=== PATIENT | male | born 1945 | race Caucasian/White ===

== ENCOUNTER 2019-05-31 10:33 | Outpatient (CLI) | payer MEDICARE, MEDICAID, SELFPAY ==
--- NOTE | ~2019-05-31 | US_ITS ---
EXAMINATION: US abdomen limited DATE: 05/31/2019 11:20 INDICATION: Ascites TECHNIQUE: Multiple grayscale and Doppler ultrasound images of the abdomen were obtained. COMPARISON: Chest CT dated 06/05/2018. FINDINGS: There is increased echogenicity of the body of the pancreas which corresponds to mild diffuse fatty r eplacement on prior CT. The pancreatic head and tail are not clearly visualized. Liver has normal con tour, with a smooth surface. There is increased parenchymal echogenicity and coarsened echotexture co nsistent with diffuse hepatic steatosis. There is a small geographic region of focal hypoechoic fatty sparing along the gallbladder fossa. No liver lesion identified. No intrahepatic biliary duct dilat ion suspected. Portal venous flow was seen in the hepatopetal, normal direction and has normal Dopple r waveform. Mobile echogenic and shadowing gallstone in the gallbladder. There is suggestion of mild, tail artifact extending posteriorly from the wall of the gallbladder along the gallbladder fossa sug gesting mild adenomyomatosis. Sonographic Bassett sign was reported as negative by the content administrator.Com mon bile duct measures 5 mm diameter which is normal. Visualized portions of the kidneys demonstrates normal contour and cortical echogenicity with no hydronephrosis. The aorta and inferior vena cava ar e poorly visualized. IMPRESSION: 1. Diffuse hepatic steatosis and fatty infiltration of the pancreas. 2. Cholelithiasis without findings of acute cholecystitis. 3. Likely small region of adenomyomatosis along the wall the gallbladder abutting liver. Reviewed, dictated and finalized at location A. IMPRESSION: 1. Diffuse hepatic steatosis and fatty infiltration of the pancreas. 2. Cholelithiasis without findings of acute cholecystitis. 3. Likely small region of adenomyomatosis along the wall the gallbladder abutti ng liver.
[2019-05-31 10:49] LABS: Basophils Absolute Auto 0.06 K/mm3 (0.00-0.10); Basophils Percent Auto 0.3 % (0.0-1.0); Eosinophils Absolute Auto 0.01 K/mm3 (0.02-0.50); Eosinophils Percent Auto 0.1 % (1.0-6.0); Hematocrit 46.1 % (37.0-46.0); Hemoglobin 15.8 g/dL (12.4-15.3); Immature Granulocyte Absolute 0.53 K/mm3 (0.00-0.00); Immature Granulocyte Percent A 2.9 % (0.0-0.0); Lymphocytes Absolute Auto 1.88 K/mm3 (1.10-4.50); Lymphocytes Percent Auto 10.4 % (18.0-42.0); Mean Corpuscular HGB Conc 34.3 g/dL (32.0-36.0); Mean Corpuscular Hemoglobin 28.7 pg (27.0-31.0); Mean Corpuscular Volume 83.8 fL (78.0-102.0); Mean Platelet Volume 9.7 fl (8.7-11.0); Monocytes Percent Auto 6.1 % (2.0-11.0); Neutrophils Absolute Auto 14.5 K/mm3 (1.7-7.2); Neutrophils Percent Auto 80.2 % (50.0-70.0); Platelet Count Result 257 K/mm3 (150-420); Red Cell Distribution Width 14.6 % (11.6-14.4); White Blood Count 18.1 K/mm3 (4.8-10.8)
[2019-05-31 11:00] LABS: Prothrombin Time 10.2 Seconds (9.64-11.0)
[2019-05-31 11:16] LABS: Alanine Aminotransferase 19 U/L (16-63); Albumin Level 3.2 g/dL (3.4-5.0); Alkaline Phosphatase 66 U/L (46-116); Anion Gap 12.6 mmol/L (7-16); Aspartate Amino Transferase 12 U/L (15-37); Bilirubin Direct 0.1 mg/dL (0-0.2); Bilirubin,Total 0.4 mg/dL (0.00-1.00); Blood Urea Nitrogen 24 mg/dL (7-18); Calcium 8.2 mg/dL (8.5-10.1); Carbon Dioxide 26 mmol/L (21-32); Chloride 105 mmol/L (98-108); Estimated Glomerular Filt Rate 56; Ferritin 148 ng/mL (26-388); Glucose 142 mg/dL (70-99); Osmolality Calculated 294 mOsm/kg (285-295); Potassium 4.6 mmol/L (3.5-5.1); Sodium 139 mmol/L (136-145); Total Protein 6.6 g/dL (6.4-8.2)
[2019-05-31 11:31] LABS: Ammonia 13 umol/L (11-32)
[2019-05-31 11:38] LABS: Iron 122 ug/dL (65-175); Percent Iron Saturation 39 % (12-57)
[2019-06-02 02:07] LABS: Hepatitis A Antibody IgM Nonreactive; Hepatitis B Core Antibody Nonreactive (Nonreactive); Hepatitis B Surface Antigen Nonreactive (Nonreactive); Hepatitis C Signal to Cutoff 0.01 ratio (<1.00); Hepatitis C Virus Antibody Nonreactive (Nonreactive)
== END 2019-05-31 10:34 | disposition home or self-care (01) ==
LOC: CHSLAB 10:38
PROVIDERS: PCP Family Medicine; Visit Provider Family Medicine
DX: R18.8 Other ascites (principal); I48.91 Unspecified atrial fibrillation; F10.20 Alcohol dependence, uncomplicated; R63.2 Polyphagia
CPT/HCPCS: 36415; 76705; 80048; 80074; 80076; 82140; 82728; 83540; 83550; 85025; 85610

== ENCOUNTER 2019-07-27 12:03 | Outpatient (CLI) | payer MEDICARE, SELFPAY ==
[2019-07-27 13:41] LABS: Alanine Aminotransferase 16 U/L (16-63); Albumin Level 3.4 g/dL (3.4-5.0); Alkaline Phosphatase 105 U/L (46-116); Anion Gap 13.5 mmol/L (7-16); Aspartate Amino Transferase 13 U/L (15-37); Bilirubin,Total 0.4 mg/dL (0.00-1.00); Blood Urea Nitrogen 15 mg/dL (7-18); Carbon Dioxide 28 mmol/L (21-32); Chloride 104 mmol/L (98-108); Estimated Glomerular Filt Rate 54; Glucose 116 mg/dL (70-99); Osmolality Calculated 293 mOsm/kg (285-295); Potassium 4.5 mmol/L (3.5-5.1); Sodium 141 mmol/L (136-145); Total Protein 6.7 g/dL (6.4-8.2)
== END 2019-07-27 12:04 | disposition home or self-care (01) ==
PROVIDERS: PCP Family Medicine; Visit Provider Internal Medicine Pulmonary Disease
DX: K74.60 Unspecified cirrhosis of liver (principal)
CPT/HCPCS: 36415; 80053

== ENCOUNTER 2019-09-07 10:27 | Outpatient (CLI) | payer MEDICARE, MEDICAID, SELFPAY ==
--- NOTE | ~2019-09-07 | XR_ITS ---
EXAMINATION: XR knee RT 2V DATE: 09/07/2019 10:49 INDICATION: Right knee primary osteoarthritis. Right knee pain. TECHNIQUE: 2 views of right knee were obtained. COMPARISON: Right knee radiographs 05/08/2017 FINDINGS: Bone alignment is normal. No fracture. There is mild tricompartmental osteoarthritis. No kn ee joint effusion. IMPRESSION: 1. Mild right knee osteoarthritis. Reviewed, dictated and finalized at location A.
--- NOTE | ~2019-09-07 | XR_ITS ---
EXAMINATION: XR knee LT 2V DATE: 09/07/2019 10:49 INDICATION: Primary left knee osteoarthritis. TECHNIQUE: 2 views of left knee were obtained. COMPARISON: Left knee radiographs 05/08/2017 FINDINGS: Bone alignment is normal. No fracture. There is mild osteoarthritis of patellofemoral cary rtment. No knee joint effusion. IMPRESSION: 1. Mild left knee osteoarthritis. Reviewed, dictated and finalized at location A.
== END 2019-09-07 10:28 | disposition home or self-care (01) ==
LOC: CHSIMG 10:29
PROVIDERS: PCP Nurse Practitioner Family; Visit Provider Nurse Practitioner Family
DX: M15.0 Primary generalized (osteo)arthritis (principal)
CPT/HCPCS: 73560

== ENCOUNTER 2019-09-23 11:34 | Outpatient (CLI) | payer MEDICARE, MEDICAID, SELFPAY ==
--- NOTE | ~2019-09-23 | XR_ITS ---
XR chest 2V DATE: 09/23/2019 11:59 INDICATION: Chronic obstructive pulmonary disease TECHNIQUE: PA and lateral views COMPARISON: 06/23/2018 2 view chest FINDINGS: There is middle lobe atelectasis and/or consolidation. Obstructing endobronchial lesion of the middle lobe is not excluded. Moderate hyperinflation of the lungs. The remaining lung farmer are clear. Mild bilateral apical cap ping. Heart size is within normal range. There is aortic calcification. No pleural effusion or pne umothorax. Diffuse osteopenia. Old healed bilateral rib fractures. Old left humeral neck fracture. Probable o ld right scapular fracture deformity. Old thoracic spine compression fracture deformities. Old ster nal fracture deformity. IMPRESSION: Middle lobe infiltrate and/or atelectasis; obstructing endobronchial malignancy cannot be excluded. Reviewed, dictated and finalized at location B. IMPRESSION: Middle lobe infiltrate and/or atelectasis; obstructing endobronchia l malignancy cannot be excluded.
[2019-09-23 13:10] LABS: Alanine Aminotransferase 31 U/L (16-63); Albumin Level 3.2 g/dL (3.4-5.0); Alkaline Phosphatase 79 U/L (46-116); Anion Gap 16.7 mmol/L (7-16); Aspartate Amino Transferase 17 U/L (15-37); Bilirubin,Total 0.6 mg/dL (0.00-1.00); Blood Urea Nitrogen 22 mg/dL (7-18); Calcium 8.7 mg/dL (8.5-10.1); Carbon Dioxide 24 mmol/L (21-32); Chloride 103 mmol/L (98-108); Estimated Glomerular Filt Rate 40; Glucose 190 mg/dL (70-99); Osmolality Calculated 298 mOsm/kg (285-295); Potassium 3.7 mmol/L (3.5-5.1); Sodium 140 mmol/L (136-145); Total Protein 6.2 g/dL (6.4-8.2)
== END 2019-09-23 11:35 | disposition home or self-care (01) ==
LOC: CHSLAB 11:37
PROVIDERS: PCP Nurse Practitioner Family; Visit Provider Nurse Practitioner Family
DX: J44.9 Chronic obstructive pulmonary disease, unspecified (principal); E87.1 Hypo-osmolality and hyponatremia
CPT/HCPCS: 36415; 71046; 80053

== ENCOUNTER 2019-09-28 11:22 | Outpatient (CLI) | payer MEDICARE, MEDICAID, SELFPAY ==
--- NOTE | ~2019-09-28 | CT_ITS ---
EXAMINATION: CT chest w con DATE: 09/28/2019 12:01 INDICATION: Shortness of breath. COPD. TECHNIQUE: Computed tomography (CT) of the chest was performed with 75 cc Omnipaque 350 intravenous c ontrast. The dose-length product was 411.67 mGy-cm. Automated exposure control and iterative reconstr uction technique were employed. COMPARISON: CT dated 08/23/2013 FINDINGS: There is mediastinal lipomatosis. Heart size is normal. No significant pleural or pericardi al effusion. No thoracic lymphadenopathy. There is atherosclerosis of the aorta without evidence for aneurysm or dissection. There is fatty infiltration of the liver. There is a 3 mm right upper lobe no dule, image 63. Calcified granuloma right lower lobe. There is lingular atelectasis/scarring. There i s apical pleural thickening/scarring. There is right middle lobe atelectasis. There are multiple heal ed right rib fractures. There is a chronic fracture deformity of the sternum. There are multiple thor acic compression fractures, age indeterminate. IMPRESSION: 1. Right upper lobe nodule measuring 3 mm, likely benign. Follow-up low dose CT chest in 12 months re commended. 2: Multiple thoracic compression fractures, age indeterminate. Multiple chronic right rib fractures. Chronic sternal fracture. Reviewed, dictated and finalized at location A. IMPRESSION: 1. Right upper lobe nodule measuring 3 mm, likely benign. Follow-up low dose CT chest in 12 months recommended. 2: Multiple thoracic compression fractures, age indeterminate. Multiple chronic right rib fractures. Chronic sternal fracture.
== END 2019-09-28 11:23 | disposition home or self-care (01) ==
LOC: CHSIMG 11:24
PROVIDERS: PCP Family Medicine; Visit Provider Internal Medicine Pulmonary Disease
DX: R91.8 Other nonspecific abnormal finding of lung field (principal); J44.9 Chronic obstructive pulmonary disease, unspecified
CPT/HCPCS: 71260; Q9965

== ENCOUNTER 2019-09-29 11:03 | Inpatient (IN) | payer MEDICARE, MEDICAID, SELFPAY ==
[2019-09-29] VITALS (16 sets, daily range): BP systolic 92–128; BP diastolic 30–79; PULSE 89–139; RESP 20–26; TEMP 36.5–37.2; O2SAT 95–99; BMI 27.6
--- NOTE | ~2019-09-29 | CT_ITS ---
EXAMINATION: CT abdomen pelvis wo con DATE: 09/29/2019 17:55 INDICATION: Elevated lactic acid levels. Acute renal failure. Ascites. TECHNIQUE: Computed tomography (CT) of the abdomen and pelvis was performed without intravenous contr ast. The dose-length product was 1125.94 mGy-cm. Automated exposure control and iterative reconstruct ion technique were employed. COMPARISON: None. FINDINGS: Bibasilar dependent atelectasis. Heart size normal. There are prominent cardiophrenic angle fat pads. No significant pleural or pericardial effusion. Cholelithiasis. The liver, spleen, pancreas, adrenal glands and kidneys are unremarkable. There is co ntrast in the bladder, likely from recent CT chest dated 09/28/2019. Nonobstructive bowel gas pattern. No free air or free fluid. Colonic diverticulosis without evidence for diverticulitis. No abnormal p elvic masses or fluid collections. There is atherosclerosis without evidence for aneurysm.There are s urgical changes in the lower abdomen abdominal wall, consistent with previous hernia repair. Wedge co mpression deformity of T10, likely chronic. IMPRESSION: 1. No acute abdominal abnormality. 2: Cholelithiasis. Reviewed, dictated and finalized at location A.
--- NOTE | ~2019-09-29 | CT_ITS ---
EXAMINATION: CTA chest PE protocol DATE: 10/01/2019 17:21 CDT INDICATION: Shortness of breath. Elevated d-dimer. TECHNIQUE: Computed tomographic angiography (CTA) of the chest was performed with 100 mL Omnipaque-35 0 intravenous contrast. The dose-length product was 618.25 mGy-cm. Maximum intensity projection 3D-re constructions of the aorta and other arteries were constructed by the technologist on a separate work station. Automated exposure control and iterative reconstruction technique were employed. COMPARISON: CT dated 09/28/2019 FINDINGS: New trace pleural effusions with underlying compressive atelectasis. Right middle lobe atel ectasis. Study is technically adequate without evidence for pulmonary embolism. No thoracic lymphaden opathy. Mediastinal lipomatosis. There is atherosclerosis of the aorta without evidence for aneurysm or dissection. 3 mm right upper lobe unchanged. No focal airspace consolidation. There is evidence fo r chronic granulomatous disease. Multiple thoracic compression fractures unchanged. There is a chroni c fracture of the sternum with callus formation. T4 compression fracture appears sclerotic. Cannot ex clude pathologic fracture. IMPRESSION: 1. No evidence for pulmonary embolism. 2: Interval development of some trace pleural effusions with compressive atelectasis. 3: Multiple thoracic compression fractures, unchanged. T4 fracture may be pathologic given the sclero tic appearance. Chronic fracture deformity of the sternum. 4: Stable 3 mm right upper lobe nodule, likely benign. Twelve-month follow-up CT recommended. Reviewed, dictated and finalized at location A. IMPRESSION: 1. No evidence for pulmonary embolism. 2: Interval development of some trace pleural effusions with compressive atelec tasis. 3: Multiple thoracic compression fractures, unchanged. T4 fracture may be patho logic given the sclerotic appearance. Chronic fracture deformity of the sternum . 4: Stable 3 mm right upper lobe nodule, likely benign. Twelve-month follow-up C T recommended.
--- NOTE | ~2019-09-29 | XR_ITS ---
EXAMINATION: XR chest 2V DATE: 09/30/2019 11:30 INDICATION: Worsening atrial fibrillation TECHNIQUE: Frontal and lateral views of the chest are obtained COMPARISON: 09/29/2019 FINDINGS: The lungs are free of acute opacities. A prominent epicardial fat pad is again noted as see n on recent CT. There are trace pleural effusions. No pneumothorax is identified. The cardiomediastin al silhouette is normal. Multiple healed bilateral rib fractures are noted. IMPRESSION: 1. Trace pleural effusions. Reviewed, dictated and finalized at location B. IMPRESSION: 1. Trace pleural effusions.
--- NOTE | ~2019-09-29 | XR_ITS ---
EXAMINATION: XR chest 2V EXAM DATE: 09/29/2019 13:04 INDICATION: Shortness of breath. TECHNIQUE: Frontal and lateral projections of the chest obtained and reviewed. Comparison is made to prior examination from 09/23/2019, 06/17/2018. Correlation was made with chest CT 09/28/2019. FINDINGS: Chronically increased density over right epicardial region. Correlating with yesterday's ch est CT, patient has large amount of epicardial fat which likely accounts for this increased density. No confluent consolidation, pneumothorax or pleural effusion suspected. Old bilateral rib fractures. There are mild bony degenerative changes. IMPRESSION: 1. No acute cardiopulmonary findings. 2. Chronic right pericardiac density, large amount of epicardial fat. Reviewed, dictated and finalized at location A.
--- NOTE | 2019-09-29 11:29 | ECG_ITS ---
Measurements Intervals [place] Rate: 126 P: ND: 0 QRS: 24 QRSD: 97 T: 35 QT: 313 QTc: 454 Interpretive Statements ATRIAL FIBRILLATION WITH RAPID VENTRICULAR RESPONSE VENTRICULAR PREMATURE COMPLEXES EARLY PRECORDIAL R/S TRANSITION NONSPECIFIC ST & T-WAVE ABNORMALITY- INF/HIGH LAT LEADS BASELINE WANDER- V4-V6 ABNORMAL ECG Electronically Signed On 09-29-2019 12:24:46 CDT by Adam Sims D.O.
--- NOTE | 2019-09-29 11:31 | ED.GENADULT ---
HPI - General Adult General Chief complaint: Arrhythmia/Palpitations Stated complaint: shortness of breath Time Seen by Provider: 09/29/19 11:31 History of Present Illness HPI narrative: 74-year-old male patient was sent to us from the Clinic by the nurse practitioner for evaluation of a rapid heart rate of 150. The patient apparently was at her office this morning to get a short of Trulicity and during his routine vital Signs they found that he had low blood pressure as well as atrial fibrillation. The patient denies any palpitations or chest pain. Patient does complain of shortness of breath which has been going on for a long time. He does have an underlying history of COPD and is still a smoker of approximately 7 cigarettes a day. He uses home oxygen at 3 liters/minute. He is also using neb treatments at home. The patient did have pneumonia in the past and had a CT of the chest done yesterday with diet which reports right upper lobe nodule that measures about 3 mm probably benign. He also has some thoracic compression fractures of indeterminate age and chronic right rib fractures. The patient has not experienced any dizziness lightheadedness or passing out spells. Patient was recently started on Levaquin for possible pneumonia. He has also been given Lasix that has been in addition to his medication recently for his shortness of breath. Although I do not see any history of congestive heart failure documented in his past medical complaints. Related Data Home Medications Medication Instructions Recorded Confirmed albuterol sulfate 90 mcg/actuation 1 puff INHALATION Q4H PRN 02/09/19 09/29/19 aerosol inhaler aspirin 81 mg tablet,delayed 81 mg PO DAILY 02/09/19 09/29/19 release fluticasone fur. 100 mcg-umeclid 1 inhalation INHALATION DAILY 02/09/19 09/29/19 62.5 mcg-vilant 25 mcg inhalat.powder theophylline 400 mg 400 mg PO DAILY 02/09/19 09/29/19 tablet,extended release 24 hr levofloxacin 750 mg tablet 750 mg PO DAILY tablet 09/29/19 09/29/19 prednisone 10 mg tablet 10 mg PO DAILY 09/29/19 09/29/19 Allergies Allergy/AdvReac Type Severity Reaction Status Date / Time Penicillins Allergy Intermediate Unknown Verified 09/29/19 10:32 propoxyphene [Darvocet-N 100] Allergy Intermediate Unknown Verified 09/29/19 10:32 Review of Systems Eyes: Eyes: Reports no additional eye complaints ENT: Denies dysphagia, Denies vertigo, Denies dizziness and Denies nasal congestion Cardiovascular: Cardiovascular: Reports no additional cardiovascular complaints Respiratory: Respiratory: Reports as per HPI, Reports cough and Reports dyspnea Comments: Productive cough PMFSH Social History Social History Smoking packs per day: 1 Smoking cigarettes per day: 20.0 Years smoked: 50 Smoking pack-years: 50.00 Smoking status: Current every day smoker Tobacco type: cigarettes Alcohol intake: current Additional living arrangements comments: x2. Lives with girlfriend. 3 Children. 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 Gender identity (if verbalized by the patient): Male Exam Extrem: General: no edema Course Course Emergency Course: Patient has an EKG that confirms atrial fibrillation with rapid ventricular rate. His vital signs remained stable although his blood pressure is on the lower side. He does not appear in any acute distress. His labs have been reviewed and he does have a mild elevation of white cell count with an early shift. Troponin is normal. A repeat chest x-ray has been done here which does not show any obvious pneumonia but is consistent with the COPD. The CT chest done yesterday has been reviewed and mentioned in the history of present illness at this time. Patient has been given 10 mg of diltiazem and his heart rate did slow down to 134 from 150 however he is still in AFib. The patient's
[2019-09-29 11:50] LABS: Hematocrit 35.6 % (37.0-46.0); Hemoglobin 12.7 g/dL (12.4-15.3); Mean Corpuscular HGB Conc 35.7 g/dL (32.0-36.0); Mean Corpuscular Hemoglobin 30.2 pg (27.0-31.0); Mean Corpuscular Volume 84.6 fL (78.0-102.0); Mean Platelet Volume 10.4 fl (8.7-11.0); Platelet Count Result 165 K/mm3 (150-420); Red Blood Count 4.21 M/mm3 (4.70-6.10); Red Cell Distribution Width 14.6 % (11.6-14.4); White Blood Count 15.6 K/mm3 (4.8-10.8)
[2019-09-29] MEDS: dilTIAZem HCl INJ 25 MG/5 ML VIAL 10 MG IV PUSH (11:58)
[2019-09-29] MEDS: SODIUM CHLORIDE 0.9% IV 1,000 ML 150 ML IV CONT ×2 (11:59→17:20)
[2019-09-29 12:08] LABS: Alanine Aminotransferase 27 U/L (16-63); Albumin Level 2.9 g/dL (3.4-5.0); Alkaline Phosphatase 70 U/L (46-116); Anion Gap 15.8 mmol/L (7-16); Aspartate Amino Transferase 17 U/L (15-37); Bilirubin,Total 0.3 mg/dL (0.00-1.00); Blood Urea Nitrogen 38 mg/dL (7-18); Calcium 7.9 mg/dL (8.5-10.1); Carbon Dioxide 22 mmol/L (21-32); Chloride 104 mmol/L (98-108); Estimated Glomerular Filt Rate 30; Glucose 399 mg/dL (70-99); Osmolality Calculated 312 mOsm/kg (285-295); Potassium 3.8 mmol/L (3.5-5.1); Sodium 138 mmol/L (136-145); Total Protein 6.3 g/dL (6.4-8.2)
[2019-09-29 12:13] LABS: BNP 34.8 pg/mL (0-100)
[2019-09-29 12:14] LABS: Band Neutrophils Percent 4 % (0-6); Basophils Percent Manual 0 % (0-1); Eosinophils Percent Manual 0 % (1-6); Lymphocytes Absolute Manual 1.09 K/mm3 (1.1-4.5); Lymphocytes Percent Manual 7 % (18-44); Metamyelocytes Percent 1 %; Monocytes Absolute Manual 0.31 K/mm3 (0.1-0.90); Monocytes Percent Manual 2 % (3-9); Neutrophils Absolute Manual 14.04 K/mm3 (1.3-6.7); Neutrophils Percent Manual 86 % (46-73); Total Cells Counted 100
[2019-09-29 12:15] LABS: Troponin I < 0.02 ng/mL (0.00-0.056)
[2019-09-29 12:27] LABS: Platelet Estimate Adequate (Adequate)
--- NOTE | 2019-09-29 14:22 | PM.IMHP ---
H&P: HPI History of Present Illness Chief complaint: shortness of breath Narrative: Kip Montero is a 74 year old male admitted with Arrhythmia, Palpitations, productive cough, dyspnea, and shortness of breath. He was sent to us from the Clinic by the nurse practitioner for evaluation of a rapid heart rate of 150. The patient apparently was at her office this morning to get a shot of Trulicity and during his routine vital Signs they found that he had low blood pressure as well as atrial fibrillation. The patient denies any palpitations or chest pain. Patient does complain of shortness of breath which has been going on for a long time. He does have an underlying history of COPD and is still a smoker of approximately 7 cigarettes a day. He uses home oxygen at 3 liters/minute. He is also using neb treatments at home. The patient did have pneumonia in the past and had a CT of the chest done yesterday with diet which reports right upper lobe nodule that measures about 3 mm probably benign. He also has some thoracic compression fractures of indeterminate age and chronic right rib fractures. The patient has not experienced any dizziness lightheadedness or passing out spells. Patient was recently started on Levaquin for possible pneumonia. He completed a 5 day course, but was written to start another 5 day course. He has also been given Lasix that has been in addition to his medication recently for his shortness of breath. The ED physician did not see any history of congestive heart failure documented in his past medical complaints. His ED admission HR was 112-139 with stable BPs of 128/59 and 110/79. Patient has an EKG that confirms atrial fibrillation with rapid ventricular rate. Troponin x 1 WNL. LFTs are wnl. BNP low at 34.8. Due to the patient's current soft blood pressures and near hypotension, we are holding his home dose of losartan. We will also his home dose of Pletal as it interacts with Cardizem. Pletal should be restarted as soon as the patient is off the Cardizem drip or at the least at discharge if his BPs are sufficient. In the ED, His vital signs remained stable although his blood pressure is on the lower side. He does not appear in any acute distress. His labs have been reviewed and he does have a mild elevation of white cell count with an early shift. Troponin is normal. A repeat chest x-ray has been done here which does not show any obvious pneumonia but is consistent with the COPD. The CT chest done yesterday has been reviewed and mentioned in the history of present illness at this time. Patient has been given 10 mg of diltiazem and his heart rate did slow down to 134 from 150 however he is still in AFib. The patient's blood pressure went down to 99/61. He has been started on a Cardizem drip. He is aware of admission for overnight observation today. The nurse practitioner and has already been notified. We will go ahead and admit the patient from the ER. His creatinine is 2.17 today with a BUN 38 and GFR of 30. His baseline creatinine appears to be 1.25-1.30. His creatinine on 05/31/19 was 1.25 and on 07/27/2019 creatinine was 1.30. The non-renal doses of Levaquin he was taking, likely did not help his renal function at this time. And his dehydration only compounded that. Plus his diabetic non-compliance with A1C over 9, compounded his renal dysfunction. This patient has been seen both his structural ironworker Dr. Grijalva as well as his primary care provider, multiple times over the last 2 weeks. He was placed on 5 days of Levaquin around September 23 by Primary Care provider. He was then instructed to start another 5 days of oral Levaquin by [facility] Department Supervisor Dr. Grijalva. He reports that he took a total of 6 days of Levaquin prior to this admission. We will not continue any antibiotics at this time for pneumonia as his CT yesterday of the chest and his chest x-ray today sign of pneumonia or acute infection. His white count though is elevated. His
[2019-09-29 14:23] LABS: Glucose Point of Care 393 (65-105)
--- NOTE | 2019-09-29 14:37 | PC.NURSE ---
Admitted for elevated heart rate, from home, hx of back pain and afib, states also sugar diabetes, here for cardizem drip, placed on telemetry and noted to have afib 110's heart rate, oxygen at home 2 L NC at night, recent dx of pneumonia as well,oriented to room and place don oxygen as per home dose, recent increase in sob lately
--- NOTE | 2019-09-29 14:47 | PHAR ---
09/29/19 - PT. TAKES METOPROLOL TARTRATE 100MG BID PER JUSTINO, LAST FILLED 45D SUPPLY 08/16/19. HE GOT 5 DAY SUPPLY OF LEVAQUIN 09/24/19, THEN GOT ANOTHER SUPPLY 09/28/19 PER JUSTINO. INITIALLY ORDERED TO CONTINUE THE 750MG DAILY; DISCUSSED AND WAS GOING TO CHANGE DOSE TO Q48H DUE TO CRCL ~30ML/MIN. BUT ELLIS CUMMINS DECIDED TO DC THERAPY ALL TOGETHER SINCE PT HAS ALREADY HAD 5 DAY COURSE OF HIGH DOSE LEVQUIN THERAPY OUTPATIENT. ELLIS Elder IS D/C'ING PLETAL DUE TO CONTRAINDICATION FLAG WITH DILITAZEM DRIP AT THIS TIME. TLS
[2019-09-29 15:14] LABS: Acetone SMALL (Negative)
[2019-09-29 15:29] LABS: Lactic Acid Reflex 2.9 mmol/L (0.4-2.0)
[2019-09-29 15:55] LABS: Phosphorus 2.7 mg/dL (2.6-4.7)
[2019-09-29 15:57] LABS: Magnesium 0.9 mg/dL (1.8-2.4)
--- NOTE | 2019-09-29 16:00 | PC.NURSE ---
Afib 110 no change in cardizem drip at this time
[2019-09-29] MEDS: MAGNESIUM SULF 4 GM/WATER100ML 4 GM/100 ML BAG IVPB (17:27)
--- NOTE | 2019-09-29 17:30 | PC.NURSE ---
To CT for ab dominal series
[2019-09-29 17:35] LABS: Reflex Lactic Acid Yes or No Add Lactic
[2019-09-29] MEDS: IPRATROPIUM 0.5 MG/ALBUTEROL SULFATE 2.5 MG AMPUL.NEB 3 ML INHALATION ×2 (17:57→22:58)
[2019-09-29] MEDS: BUDESONIDE RESPULE NEB 0.25 MG/2 ML AMP INHALATION (17:59)
[2019-09-29] MEDS: ENOXAPARIN 30 MG/0.3 ML SYRINGE SUB-Q (17:59)
--- NOTE | 2019-09-29 18:41 | PC.NURSE ---
telemetry afib 120
[2019-09-29 19:52] LABS: Creatine Kinase 84 U/L (39-308)
--- NOTE | 2019-09-29 19:55 | PC.NURSE ---
Telemetry showing A-fib. Patient resting. No distress noted. Call light in reach.
[2019-09-29 19:57] LABS: Glucose Point of Care 343 (65-105)
[2019-09-29 19:59] LABS: Lactic Acid 2.1 mmol/L (0.4-2.0)
--- NOTE | 2019-09-29 20:00 | PC.NURSE ---
VS called to Dr Haney. Order received to ROSEMARIE Calderon and Dr sutton put in order for nery Calderon.
[2019-09-29 20:08] LABS: Magnesium 2.5 mg/dL (1.8-2.4); Troponin I < 0.02 ng/mL (0.00-0.056)
--- NOTE | 2019-09-29 21:10 | PC.NURSE ---
Telemetry showing A-fib. Patient resting. No distress noted. Call light in reach.
--- NOTE | 2019-09-29 22:05 | PC.NURSE ---
Telemetry showing A-fib. Patient resting. No distress noted. Blood sugar= 241. Call light in reach.
[2019-09-29 22:25] LABS: Glucose Point of Care 246 (65-105)
[2019-09-29] MEDS: CYCLOBENZAPRINE HCL 10 MG TABLET PO (22:43)
--- NOTE | 2019-09-29 23:05 | PC.NURSE ---
Telemetry showing A-fib. Patient resting. No distress noted. Call light in reach.
[2019-09-30] VITALS (23 sets, daily range): BP systolic 97–123; BP diastolic 38–67; PULSE 84–156; RESP 18–28; TEMP 36.4–37.2; O2SAT 96–98
[2019-09-30 00:08] LABS: Glucose Point of Care 218 (65-105)
--- NOTE | 2019-09-30 00:15 | PC.NURSE ---
Telemetry showing A-fib. VS called to Dr Haney with order received to hold nery Calderon. Blood wylfn=[id number]. No distress noted. Call light in reach.
--- NOTE | 2019-09-30 01:05 | PC.NURSE ---
Patient appears to be sleeping by the rise and fall of his chest. Telemetry showing A-fib. No distress noted. Call light in reach.
--- NOTE | 2019-09-30 02:10 | PC.NURSE ---
Patient appears to be sleeping by the rise and fall of his chest. Telemetry showing A-fib. No distress noted. Call light in reach.
[2019-09-30] MEDS: SODIUM CHLORIDE 0.9% IV 1,000 ML 150 ML IV CONT (02:20)
[2019-09-30 03:12] LABS: Glucose Point of Care 215 (65-105)
--- NOTE | 2019-09-30 03:15 | PC.NURSE ---
Labs drawn per tech. Patient tolerated well. Urinalysis also sent with tech to be processed. IVF infusing without difficulty. Telemetry continues to show A-fib. Patient denies pain/complaints/needs @ this time. No distress noted. Call light in reach.
[2019-09-30 03:49] LABS: Alanine Aminotransferase 25 U/L (16-63); Albumin Level 2.4 g/dL (3.4-5.0); Alkaline Phosphatase 56 U/L (46-116); Anion Gap 10.5 mmol/L (7-16); Aspartate Amino Transferase 17 U/L (15-37); Bilirubin,Total 0.4 mg/dL (0.00-1.00); Blood Urea Nitrogen 30 mg/dL (7-18); Calcium 7.3 mg/dL (8.5-10.1); Carbon Dioxide 24 mmol/L (21-32); Chloride 109 mmol/L (98-108); Estimated CRCL calculation 41 ml/min; Estimated Glomerular Filt Rate 42; Glucose 219 mg/dL (70-99); Magnesium 2.1 mg/dL (1.8-2.4); Osmolality Calculated 303 mOsm/kg (285-295); Potassium 3.5 mmol/L (3.5-5.1); Sodium 140 mmol/L (136-145); Total Protein 5.3 g/dL (6.4-8.2)
[2019-09-30 03:55] LABS: Creatine Kinase 90 U/L (39-308)
[2019-09-30 03:56] LABS: Troponin I < 0.02 ng/mL (0.00-0.056)
[2019-09-30 03:56] LABS: Lactic Acid 1.1 mmol/L (0.4-2.0)
[2019-09-30 03:58] LABS: Hemoglobin 11.1 g/dL (12.4-15.3); Mean Corpuscular HGB Conc 34.7 g/dL (32.0-36.0); Mean Corpuscular Hemoglobin 29.6 pg (27.0-31.0); Mean Corpuscular Volume 85.3 fL (78.0-102.0); Mean Platelet Volume 10.5 fl (8.7-11.0); Platelet Count Result 145 K/mm3 (150-420); Red Blood Count 3.75 M/mm3 (4.70-6.10); Red Cell Distribution Width 14.8 % (11.6-14.4); White Blood Count 10.6 K/mm3 (4.8-10.8)
[2019-09-30 04:12] LABS: Add Urine Microscopic? YES; Appearance Urine Clear (Clear); Bilirubin Urine Negative (Negative); Blood Urine Negative (Negative); Color Urine Yellow (Yellow); Glucose Urine UA 2+ (Negative); Ketones Urine Negative (Negative); Leukocyte Esterase Ur Negative (Negative); Nitrate Urine Negative (Negative); Protein Urine Negative (Negative); Specific Grav Ur >= 1.030 (1.010-1.020)
[2019-09-30 04:12] LABS: Glucose Point of Care 232 (65-105)
[2019-09-30 04:21] LABS: Bacteria Urine Trace /hpf; RBC Urine 0-2 /hpf (0-2); Squamous Epithelial Cell Urine None seen /hpf (Few); WBC Urine 0-3 /hpf (0-3)
[2019-09-30 04:22] LABS: Band Neutrophils Percent 0 % (0-6); Basophils Percent Manual 0 % (0-1); Eosinophils Percent Manual 0 % (1-6); Lymphocytes Absolute Manual 1.16 K/mm3 (1.1-4.5); Lymphocytes Percent Manual 11 % (18-44); Metamyelocytes Percent 3 %; Monocytes Absolute Manual 0.53 K/mm3 (0.1-0.90); Monocytes Percent Manual 5 % (3-9); Neutrophils Absolute Manual 8.58 K/mm3 (1.3-6.7); Neutrophils Percent Manual 81 % (46-73); Platelet Estimate Adequate (Adequate)
[2019-09-30] MEDS: IPRATROPIUM 0.5 MG/ALBUTEROL SULFATE 2.5 MG AMPUL.NEB 3 ML INHALATION ×4 (05:28→22:58)
[2019-09-30] MEDS: BUDESONIDE RESPULE NEB 0.25 MG/2 ML AMP INHALATION ×2 (05:30→18:03)
--- NOTE | 2019-09-30 06:08 | PC.NURSE ---
Spoke with [facility] to clarify cardizem PO orders.
[2019-09-30 06:18] LABS: Glucose Point of Care 219 (65-105)
[2019-09-30] MEDS: CYCLOBENZAPRINE HCL 10 MG TABLET PO ×3 (06:18→21:19)
[2019-09-30] MEDS: dilTIAZem HCL 30 MG TABLET 60 MG PO ×4 (06:18→23:31)
[2019-09-30 07:56] LABS: Glucose Point of Care 216 (65-105)
[2019-09-30] MEDS: dilTIAZem HCl INJ 25 MG/5 ML VIAL 10 MG IV PUSH (08:33)
[2019-09-30 09:04] LABS: BNP 53 pg/mL (0-100)
[2019-09-30] MEDS: FLUTICASONE/UMECLIDIN/VILANTER 100-62.5-25 MCG ELLIPTA 1 PUFF INHALATION (09:48)
[2019-09-30] MEDS: THEOPHYLLINE ANHYDROUS 100 MG CAP.ER.24H 400 MG PO (09:49)
[2019-09-30] MEDS: ASPIRIN 81 MG ENTERIC TABLET PO (09:49)
[2019-09-30] MEDS: predniSONE 10 MG TABLET PO (09:49)
[2019-09-30] MEDS: PANTOPRAZOLE 40 MG TABLET PO (09:49)
[2019-09-30] MEDS: CYCLOBENZAPRINE HCL 10 MG TABLET 5 MG PO (09:53)
[2019-09-30 10:30] LABS: Glucose Point of Care 269 (65-105)
[2019-09-30 11:52] LABS: Glucose Point of Care 259 (65-105)
--- NOTE | 2019-09-30 12:10 | PHAR ---
09/30/19 - spoke w/pt. He last got his weekly Trulicity injection 09/29/19 (got it adminsitered across the street at clinic before getting admitted). tls
--- NOTE | 2019-09-30 12:30 | P.PN_ITS ---
Progress Note: A&P Assessment and Plan (1) Atrial fibrillation with rapid ventricular response: Code(s): I48.91 - Unspecified atrial fibrillation Status: Acute Assessment and Plan: * admitted with Arrhythmia, Palpitations, productive cough, dyspnea, and shortness of breath. rapid heart rate of 150. * EKG on admission indicates atrial fibrillation with rapid ventricular rate. * continue telemetry * troponin negative x3 * BMP within normal limits * echo pending * discontinue Cardizem drip started Cardizem 120 mg daily for tomorrow, will continue Cardizem 60 mg p.o. q.6 hours for now * decrease metoprolol to 50 mg b.i.d. instead of 100 mg b.i.d. and started losartan at 12.5 daily * Lovenox ordered * follow-up with supervisor pig machine after discharge (2) COPD (chronic obstructive pulmonary disease): Code(s): J44.9 - Chronic obstructive pulmonary disease, unspecified Status: Acute Assessment and Plan: * stable * continue budesinide and DuoNeb nebulizers * patient use home O2 * the theophylline level pending * SpO2 is currently 95% on 2 L of oxygen nasal cannula * cxr indicate a trace of pleural effusion (3) Type 2 diabetes mellitus: Code(s): E11.9 - Type 2 diabetes mellitus without complications Status: Acute Assessment and Plan: * remains elevated but less than 300 * beta hydroxybutyrate level pending * patient passed A1c 9.4, patient goes to PCP office for Trulicity injections. * change patient's insulin from lower to moderate sliding scale * patient states that he has never checked his glucose levels at home, stated that he doesn't even have the equipment to do so * will need extensive education regarding: diabetes, appropriate glucose levels, risks and effects of uncontrolled DM, using insulin at home, glucose monitoring needs to be able to return demonstrate ability to dose and administer his insulin prior to discharge * have an Practice Assistant appointment in place at discharge (4) Ascites: Code(s): R18.8 - Other ascites Status: Acute Assessment and Plan: * LFTs are wnl. * palpable enlarged and tender abdomen * ordered CT scan abdomen and pelvis - No acute abdominal abnormality * BMP within normal limits * history of ascites, previous US on 05/31/19 showin. Diffuse hepatic steatosis and fatty infiltration of the pancreas.2. Cholelithiasis without findings of acute cholecystitis.3. Likely small region of adenomyomatosis along the wall the gallbladder abutting liver. (5) Acute renal failure: Code(s): N17.9 - Acute kidney failure, unspecified Status: Acute Assessment and Plan: * improving * reatinine is 1.60 today with a BUN 30 * baseline creatinine appears to be 1.25-1.30. His creatinine on 05/31/19 was 1.25 and on 07/27/2019 creatinine was 1.30. * possibly secondary to IV antibiotic versus dehydration versus noncompliance with his diabetes versus IV contrast * avoid Nephrotoxic medications * Renal dose all medications (6) Leukocytosis: Code(s): D72.829 - Elevated white blood cell count, unspecified Status: Acute Assessment and Plan: * resolved * leukocytosis may have be related or reactive to his Afib in RVR elevated HR, versus dehydration * patient with a trace of bacteria in his urine you a culture pending. * patient afebrile * blood culture pending * CT chest completed yesterday with contrast - No significant pleural or pericardial effusion. No thoracic lymphadenopathy. There is
--- NOTE | 2019-09-30 12:30 | WPDPN ---
Progress Note: A&P Assessment and Plan (1) Atrial fibrillation with rapid ventricular response: Code(s): I48.91 - Unspecified atrial fibrillation Status: Acute Assessment and Plan: admitted with Arrhythmia, Palpitations, productive cough, dyspnea, and shortness of breath. rapid heart rate of 150. EKG on admission indicates atrial fibrillation with rapid ventricular rate. continue telemetry troponin negative x3 BMP within normal limits echo pending discontinue Cardizem drip started Cardizem 120 mg daily for tomorrow, will continue Cardizem 60 mg p.o. q.6 hours for now decrease metoprolol to 50 mg b.i.d. instead of 100 mg b.i.d. and started losartan at 12.5 daily Lovenox ordered follow-up with medical transcriber after discharge (2) COPD (chronic obstructive pulmonary disease): Code(s): J44.9 - Chronic obstructive pulmonary disease, unspecified Status: Acute Assessment and Plan: stable continue budesinide and DuoNeb nebulizers patient use home O2 the theophylline level pending SpO2 is currently 95% on 2 L of oxygen nasal cannula cxr indicate a trace of pleural effusion (3) Type 2 diabetes mellitus: Code(s): E11.9 - Type 2 diabetes mellitus without complications Status: Acute Assessment and Plan: remains elevated but less than 300 beta hydroxybutyrate level pending patient passed A1c 9.4, patient goes to PCP office for Trulicity injections. change patient's insulin from lower to moderate sliding scale patient states that he has never checked his glucose levels at home, stated that he doesn't even have the equipment to do so will need extensive education regarding: diabetes, appropriate glucose levels, risks and effects of uncontrolled DM, using insulin at home, glucose monitoring needs to be able to return demonstrate ability to dose and administer his insulin prior to discharge have an Instrument And Control Service Person appointment in place at discharge (4) Ascites: Code(s): R18.8 - Other ascites Status: Acute Assessment and Plan: LFTs are wnl. palpable enlarged and tender abdomen ordered CT scan abdomen and pelvis - No acute abdominal abnormality BMP within normal limits history of ascites, previous US on 05/31/19 showin. Diffuse hepatic steatosis and fatty infiltration of the pancreas.2. Cholelithiasis without findings of acute cholecystitis.3. Likely small region of adenomyomatosis along the wall the gallbladder abutting liver. (5) Acute renal failure: Code(s): N17.9 - Acute kidney failure, unspecified Status: Acute Assessment and Plan: improving reatinine is 1.60 today with a BUN 30 baseline creatinine appears to be 1.25-1.30. His creatinine on 05/31/19 was 1.25 and on 07/27/2019 creatinine was 1.30. possibly secondary to IV antibiotic versus dehydration versus noncompliance with his diabetes versus IV contrast avoid Nephrotoxic medications Renal dose all medications (6) Leukocytosis: Code(s): D72.829 - Elevated white blood cell count, unspecified Status: Acute Assessment and Plan: resolved leukocytosis may have be related or reactive to his Afib in RVR elevated HR, versus dehydration patient with a trace of bacteria in his urine you a culture pending. patient afebrile blood culture pending CT chest completed yesterday with contrast - No significant pleural or pericardial effusion. No thoracic lymphadenopathy. There is atherosclerosis of the aorta without evidence for aneurysm or dissection. There is fatty infiltration of the liver. There is a 3 mm right upper lobe nodule, image 63. Calcified granuloma right lower lobe. There is lingular atelectasis/scarring. There is apical pleural thickening/scarring. There is right middle lobe atelectasis. There are multiple healed right rib fractures. There is a chronic fracture deformity of the sternum. The
[2019-09-30] MEDS: ENOXAPARIN 30 MG/0.3 ML SYRINGE SUB-Q (16:29)
--- NOTE | 2019-09-30 16:41 | ECHO_ITS ---
Patient Info Name: Kip Montero Age: 74 years : 1945 Gender: Male Ht: 73 in Wt: 207 lbs BSA: 2.21 m2 HR: 110 bpm BP: 121 / 41 mmHg Heart Rhythm: Atrial Fibrillation Technical Quality: Poor Exam Date: 09/30/2019 11:44 AM Exam Location: [facility] Patient Status: Inpatient Admit Date: 09/29/2019 Staff Ordering Physician: Lucy Sutton NP Business Office Representative: Dinah Lucas RDCS Attending Provider: Paty Guevara MD Referring Physician: Herman CHEN; Exam Type: CA echo dop color flow w con Study Info Indications I49.9 - Cardiac arrhythmia, unspecified Complete two-dimensional, color flow and Doppler transthoracic echocardiogram is performed. Reason for Poor Study: poor echocardiographic windows History/Risk Factors Hypertension: Yes Congenital Heart Disease (CHD): No Diabetic Therapy: Insulin Myocardial Infarction (FL): No Chronic Lung Disease: No Renal Disease: No Coronary Artery Disease (CAD) No Congestive Heart Failure (CHF): No Cardiomyopathy/LV Systolic Dysfunction: No Diabetes Mellitus: Type II COPD: On Meds Tobacco Use: Current - Every Day If Any Current, Tobacco Type: Cigarettes Cerebrovascular Disease: No Family History: Diabetes Mellitus Deep Vein Thrombosis (DVT): None Dialysis: None Frailty Scale (CSHA): 5: Mildly Frail Cardiac Arrest: No Summary 1. Left ventricular chamber dimension is mildly enlarged. 2. Left ventricular systolic function is normal, estimated at 60-65%. 3. The left ventricular diastolic function is indeterminate. 4. E/e' tissue doppler is not calculated to determine diastolic function. 5. Atrial fibrillation. 6. Left atrial chamber dimension is mildly enlarged. 7. There is trace aortic valve regurgitation. Recommendations * Continue medical therapy for diabetes. * Smoking cessation counseling is recommended for this patient. Left Ventricle E/e' tissue doppler is not calculated to determine diastolic function. Atrial fibrillation. Left ventricular chamber dimension is mildly enlarged. Left ventricular systolic function is normal, estimated at 60-65%. The left ventricular diastolic function is indeterminate. Right Ventricle Right ventricular chamber dimension is normal. Right ventricular systolic function is normal. Left Atria Left atrial chamber dimension is mildly enlarged. Right Atria Right atrial chamber dimension is normal. Aortic Valve The aortic valve is trileaflet. There is no aortic valve stenosis. There is trace aortic valve regurgitation. Pulmonic Valve There is no pulmonic regurgitation. Mitral Valve There is no mitral valve stenosis. There is no mitral valve regurgitation. Tricuspid Valve There is no tricuspid valve regurgitation. Pericardium/Pleural There is no pericardial effusion. Inferior Vena Cava Normal inferior vena cava with >50% collapse upon inspiration consistent with normal right atrial pressure, 5 mmHg. Aorta The aortic root size at the sinus of Valsalva is normal. Left Ventricular Outflow Tract Name Value Normal LVOT 2D LVOT Diameter 2.44 cm LVOT Doppler ----
[2019-09-30 17:01] LABS: Glucose Point of Care 273 (65-105)
[2019-09-30] MEDS: METOPROLOL TARTRATE 25 MG TABLET PO (21:16)
[2019-09-30 21:21] LABS: Glucose Point of Care 375 (65-105)
[2019-10-01] VITALS (18 sets, daily range): BP systolic 92–157; BP diastolic 50–86; PULSE 11–117; RESP 20–24; TEMP 36.6–37.1; O2SAT 95–97
--- NOTE | 2019-10-01 00:51 | PM.EVENT ---
Event Note Event Note Event Note: For 09/30/2019: I examined the patient and reviewed the chart. I discussed the patient's care with Ev Recinos APN and agree with her assessment and plan.
--- NOTE | 2019-10-01 01:48 | PC.NURSE ---
Using urinal as needed, telemetry afib 90's
[2019-10-01] MEDS: CYCLOBENZAPRINE HCL 10 MG TABLET PO ×3 (05:23→21:34)
[2019-10-01] MEDS: BUDESONIDE RESPULE NEB 0.25 MG/2 ML AMP INHALATION ×2 (05:35→18:03)
[2019-10-01] MEDS: IPRATROPIUM 0.5 MG/ALBUTEROL SULFATE 2.5 MG AMPUL.NEB 3 ML INHALATION ×4 (05:35→23:01)
--- NOTE | 2019-10-01 05:35 | PC.NURSE ---
Awake, given wash cloth to wash face, rested at times throughout night
[2019-10-01 06:01] LABS: Hemoglobin 11.3 g/dL (12.4-15.3); Mean Corpuscular HGB Conc 34.2 g/dL (32.0-36.0); Mean Corpuscular Hemoglobin 29.6 pg (27.0-31.0); Mean Corpuscular Volume 86.4 fL (78.0-102.0); Platelet Count Result 130 K/mm3 (150-420); Red Blood Count 3.82 M/mm3 (4.70-6.10); Red Cell Distribution Width 14.6 % (11.6-14.4); White Blood Count 8.9 K/mm3 (4.8-10.8)
[2019-10-01 06:18] LABS: Alanine Aminotransferase 25 U/L (16-63); Albumin Level 2.5 g/dL (3.4-5.0); Alkaline Phosphatase 59 U/L (46-116); Anion Gap 10.6 mmol/L (7-16); Aspartate Amino Transferase 16 U/L (15-37); Bilirubin,Total 0.3 mg/dL (0.00-1.00); Blood Urea Nitrogen 22 mg/dL (7-18); Calcium 7.8 mg/dL (8.5-10.1); Carbon Dioxide 25 mmol/L (21-32); Chloride 109 mmol/L (98-108); Estimated CRCL calculation 49 ml/min; Estimated Glomerular Filt Rate 53; Glucose 232 mg/dL (70-99); Osmolality Calculated 300 mOsm/kg (285-295); Potassium 4.6 mmol/L (3.5-5.1); Sodium 140 mmol/L (136-145); Total Protein 5.1 g/dL (6.4-8.2)
[2019-10-01] MEDS: guaiFENesin 12 HR 600 MG TABCR 1200 MG PO ×2 (09:59→21:32)
[2019-10-01] MEDS: METOPROLOL TARTRATE 25 MG TABLET PO ×2 (09:59→21:32)
[2019-10-01] MEDS: PANTOPRAZOLE 40 MG TABLET PO (09:59)
[2019-10-01] MEDS: BENZONATATE 100 MG CAPSULE 200 MG PO ×3 (09:59→16:45)
[2019-10-01] MEDS: LOSARTAN POTASSIUM 25 MG TABLET 12.5 MG PO (10:00)
--- NOTE | 2019-10-01 10:00 | PC.NURSE ---
Resting per bed without complaint. Tele remains afib. Reminded to call with needs.
[2019-10-01] MEDS: FLUTICASONE/UMECLIDIN/VILANTER 100-62.5-25 MCG ELLIPTA 1 PUFF INHALATION (10:01)
[2019-10-01] MEDS: THEOPHYLLINE ANHYDROUS 100 MG CAP.ER.24H 400 MG PO (10:01)
[2019-10-01] MEDS: methylPREDNISolone SOD SUCC 125 MG VIAL 80 MG IV PUSH ×2 (10:01→16:44)
[2019-10-01] MEDS: ASPIRIN 81 MG ENTERIC TABLET PO (10:01)
--- NOTE | 2019-10-01 11:28 | PM.EVENT ---
Event Note Event Note Event Note: I reviewed the patients chart, saw the patient and discussed the the diagnosis and treatment with Karen Recinos NP. I agree her assessment and the plan. Because of increased SOB will check d-dimer and do work up if positive. Otherwise, start prednisone 80 BID and begin monitoring FBS while starting oral agent. Pt. does not want insulin injections.
--- NOTE | 2019-10-01 14:00 | PC.NURSE ---
Pt sleeping per bed. No distress noted. O2 on at 2L per NC.
--- NOTE | 2019-10-01 14:39 | P.PN_ITS ---
Progress Note: A&P Assessment and Plan (1) Atrial fibrillation with rapid ventricular response: Code(s): I48.91 - Unspecified atrial fibrillation <TRINY Mckee - Last Filed: 10/01/19 15:03> Status: Acute <Karen SaiTRINY Ambrosio - Last Filed: 10/01/19 15:03> Assessment and Plan: * admitted with Arrhythmia, Palpitations, productive cough, dyspnea, and shortness of breath. rapid heart rate of 150. * EKG on admission indicates atrial fibrillation with rapid ventricular rate. * continue telemetry * troponin negative x3 * BMP within normal limits * echo pending * discontinue Cardizem drip started Cardizem 120 mg daily for tomorrow, will continue Cardizem 60 mg p.o. q.6 hours for now * decrease metoprolol to 50 mg b.i.d. instead of 100 mg b.i.d. and started losartan at 12.5 daily * Lovenox ordered * follow-up with wheel grinder after discharge <TRINY Mckee - Last Filed: 10/01/19 15:03> (2) COPD (chronic obstructive pulmonary disease): Code(s): J44.9 - Chronic obstructive pulmonary disease, unspecified <TRINY Mckee - Last Filed: 10/01/19 15:03> Status: Acute <TRINY Mckee - Last Filed: 10/01/19 15:03> Assessment and Plan: * stable * continue budesinide and DuoNeb nebulizers * increase steroids to 80 mg b.i.d. * patient use home O2 * the theophylline level pending * SpO2 is currently 95% on 2 L of oxygen nasal cannula * cxr indicate a trace of pleural effusion <TRINY Mckee - Last Filed: 10/01/19 15:03> (3) Type 2 diabetes mellitus: Code(s): E11.9 - Type 2 diabetes mellitus without complications <TRINY Mckee - Last Filed: 10/01/19 15:03> Status: Acute <TRINY Mckee - Last Filed: 10/01/19 15:03> Assessment and Plan: * remains elevated but less than 300 * beta hydroxybutyrate level pending * patient passed A1c 9.4, patient goes to PCP office for Trulicity injections. * continue sliding scale with hypoglycemic protocol and Accu-Cheks * patient has agreed to check his blood sugar. I will start the patient on glipizide his sugar will definitely increased with the use of steroids * patient states that he has never checked his glucose levels at home, stated that he doesn't even have the equipment to do so * will need extensive education regarding: diabetes, appropriate glucose levels, risks and effects of uncontrolled DM, using insulin at home, glucose monitoring needs to be able to return demonstrate ability to dose and administer his insulin prior to discharge * have an Pants Maker appointment in place at discharge <TRINY Mckee - Last Filed: 10/01/19 15:03> (4) Ascites: Code(s): R18.8 - Other ascites <TRINY Mckee - Last Filed: 10/01/19 15:03> Status: Acute <TRINY Mckee - Last Filed: 10/01/19 15:03> Assessment and Plan: * LFTs are wnl. * palpable enlarged and tender abdomen * ordered CT scan abdomen and pelvis - No acute abdominal abnormality * BMP within normal limits * history of ascites, previous US on 05/31/19 showin. Diffuse hepatic steatosis and fatty infiltration of the pancreas.2. Cholelithiasis without findings of acute cholecystitis.3. Likely small region of adenomyomatosis along the wall the gallbladder abutting liver. <TRINY Mckee - Last Filed: 10/01/19 15:03> (5) Acute renal failure: Code(s): N17.9 - Acute kidney failure, unspecified <TRINY Mckee - Last Filed:
--- NOTE | 2019-10-01 14:39 | WPDPN ---
Progress Note: A&P Assessment and Plan (1) Atrial fibrillation with rapid ventricular response: Code(s): I48.91 - Unspecified atrial fibrillation <TRINY Mckee - Last Filed: 10/01/19 15:03> Status: Acute <TRINY Mckee - Last Filed: 10/01/19 15:03> Assessment and Plan: admitted with Arrhythmia, Palpitations, productive cough, dyspnea, and shortness of breath. rapid heart rate of 150. EKG on admission indicates atrial fibrillation with rapid ventricular rate. continue telemetry troponin negative x3 BMP within normal limits echo pending discontinue Cardizem drip started Cardizem 120 mg daily for tomorrow, will continue Cardizem 60 mg p.o. q.6 hours for now decrease metoprolol to 50 mg b.i.d. instead of 100 mg b.i.d. and started losartan at 12.5 daily Lovenox ordered follow-up with organic extractions technician after discharge <TRINY Mckee - Last Filed: 10/01/19 15:03> (2) COPD (chronic obstructive pulmonary disease): Code(s): J44.9 - Chronic obstructive pulmonary disease, unspecified <TRINY Mckee - Last Filed: 10/01/19 15:03> Status: Acute <TRINY Mckee - Last Filed: 10/01/19 15:03> Assessment and Plan: stable continue budesinide and DuoNeb nebulizers increase steroids to 80 mg b.i.d. patient use home O2 the theophylline level pending SpO2 is currently 95% on 2 L of oxygen nasal cannula cxr indicate a trace of pleural effusion <TRINY Mckee - Last Filed: 10/01/19 15:03> (3) Type 2 diabetes mellitus: Code(s): E11.9 - Type 2 diabetes mellitus without complications <TRINY Mckee - Last Filed: 10/01/19 15:03> Status: Acute <TRINY Mckee - Last Filed: 10/01/19 15:03> Assessment and Plan: remains elevated but less than 300 beta hydroxybutyrate level pending patient passed A1c 9.4, patient goes to PCP office for Trulicity injections. continue sliding scale with hypoglycemic protocol and Accu-Cheks patient has agreed to check his blood sugar. I will start the patient on glipizide his sugar will definitely increased with the use of steroids patient states that he has never checked his glucose levels at home, stated that he doesn't even have the equipment to do so will need extensive education regarding: diabetes, appropriate glucose levels, risks and effects of uncontrolled DM, using insulin at home, glucose monitoring needs to be able to return demonstrate ability to dose and administer his insulin prior to discharge have an Apprentice Jockey appointment in place at discharge <TRINY Mckee - Last Filed: 10/01/19 15:03> (4) Ascites: Code(s): R18.8 - Other ascites <TRINY Mckee - Last Filed: 10/01/19 15:03> Status: Acute <TRINY Mckee - Last Filed: 10/01/19 15:03> Assessment and Plan: LFTs are wnl. palpable enlarged and tender abdomen ordered CT scan abdomen and pelvis - No acute abdominal abnormality BMP within normal limits history of ascites, previous US on 05/31/19 showin. Diffuse hepatic steatosis and fatty infiltration of the pancreas.2. Cholelithiasis without findings of acute cholecystitis.3. Likely small region of adenomyomatosis along the wall the gallbladder abutting liver. <TRINY Mckee - Last Filed: 10/01/19 15:03> (5) Acute renal failure: Code(s): N17.9 - Acute kidney failure, unspecified <TRINY Mckee - Last Filed: 10/01/19 15:03> Status: Acute <TRINY Mckee - Last Filed: 10/01/19 15:03> Assessment and Plan: improving creatinine is 1.33 alek with a BUN 22 baseline creatinine appears to be 1.25-1.30. His creatinine on 05/31/19 was 1.25 and on 07/27/2019 creatinine was 1.30. possibly secondary to IV antibiotic versus dehydration
[2019-10-01 15:55] LABS: D Dimer 0.93 mg/L (0.19-0.50)
--- NOTE | 2019-10-01 15:55 | PC.NURSE ---
Physical Therapy performing eval.
--- NOTE | 2019-10-01 16:00 | PC.NURSE ---
erp aware of elevated d-dimer
[2019-10-01] MEDS: ENOXAPARIN 30 MG/0.3 ML SYRINGE SUB-Q (16:44)
[2019-10-01] MEDS: glipiZIDE XL 5 MG TABCR PO (16:45)
[2019-10-01 17:27] LABS: Glucose Point of Care 356 (65-105)
[2019-10-01 21:01] LABS: Glucose Point of Care 324 (65-105)
[2019-10-02] VITALS (10 sets, daily range): BP systolic 106–135; BP diastolic 62–85; PULSE 98–110; RESP 20; TEMP 36.7–37.2; O2SAT 95–98
--- NOTE | 2019-10-02 00:05 | PC.NURSE ---
Heart rate up to 140 afib with RVR. Noted patient standing at bedside to urinate. Exertional dyspnea and loose nonproductive cough. Patient returned to bed and assisted to reposition linens and pillows for comfort. Denies dizziness or lightheadness. Heart rate returned to baseline 110 when nurse returned to desk. Patient states he has back pain the radiates up his back with coughing and movement. Requests pain medication.
[2019-10-02] MEDS: ACETAMINOPHEN 325 MG TABLET 650 MG PO (00:27)
[2019-10-02] MEDS: IPRATROPIUM 0.5 MG/ALBUTEROL SULFATE 2.5 MG AMPUL.NEB 3 ML INHALATION (05:32)
[2019-10-02] MEDS: CYCLOBENZAPRINE HCL 10 MG TABLET PO (05:32)
[2019-10-02 05:54] LABS: Hematocrit 33.7 % (37.0-46.0); Hemoglobin 11.8 g/dL (12.4-15.3); Mean Corpuscular Hemoglobin 30.1 pg (27.0-31.0); Mean Platelet Volume 10.2 fl (8.7-11.0); Platelet Count Result 127 K/mm3 (150-420); Red Blood Count 3.92 M/mm3 (4.70-6.10); Red Cell Distribution Width 14.3 % (11.6-14.4); White Blood Count 9.7 K/mm3 (4.8-10.8)
[2019-10-02] MEDS: BUDESONIDE RESPULE NEB 0.25 MG/2 ML AMP INHALATION (05:54)
[2019-10-02 06:07] LABS: Alanine Aminotransferase 25 U/L (16-63); Albumin Level 2.6 g/dL (3.4-5.0); Alkaline Phosphatase 62 U/L (46-116); Anion Gap 10.8 mmol/L (7-16); Aspartate Amino Transferase 15 U/L (15-37); Bilirubin,Total 0.4 mg/dL (0.00-1.00); Blood Urea Nitrogen 25 mg/dL (7-18); Calcium 8.1 mg/dL (8.5-10.1); Carbon Dioxide 25 mmol/L (21-32); Chloride 104 mmol/L (98-108); Estimated CRCL calculation 49 ml/min; Estimated Glomerular Filt Rate 52; Glucose 372 mg/dL (70-99); Osmolality Calculated 299 mOsm/kg (285-295); Potassium 4.8 mmol/L (3.5-5.1); Sodium 135 mmol/L (136-145); Total Protein 5.2 g/dL (6.4-8.2)
[2019-10-02 06:24] LABS: Band Neutrophils Percent 1 % (0-6); Basophils Percent Manual 0 % (0-1); Eosinophils Percent Manual 0 % (1-6); Lymphocytes Absolute Manual 0.77 K/mm3 (1.1-4.5); Lymphocytes Percent Manual 8 % (18-44); Metamyelocytes Percent 2 %; Monocytes Absolute Manual 0.38 K/mm3 (0.1-0.90); Monocytes Percent Manual 4 % (3-9); Neutrophils Absolute Manual 8.34 K/mm3 (1.3-6.7); Neutrophils Percent Manual 85 % (46-73); Total Cells Counted 100
[2019-10-02 06:25] LABS: Platelet Estimate Adequate (Adequate)
[2019-10-02 07:32] LABS: Glucose Point of Care 338 (65-105)
--- NOTE | 2019-10-02 07:50 | PC.NURSE ---
Up independent at sink, shaving, mouth care and hygiene done per patient with no assist, gait steady, noted heart rate increase 120-130 when active in room, no chest pain and no sob, cough noted, loose non productive
[2019-10-02] MEDS: THEOPHYLLINE ANHYDROUS 100 MG CAP.ER.24H 400 MG PO (09:10)
[2019-10-02] MEDS: BENZONATATE 100 MG CAPSULE 200 MG PO (09:11)
[2019-10-02] MEDS: guaiFENesin 12 HR 600 MG TABCR 1200 MG PO (09:11)
[2019-10-02] MEDS: glipiZIDE XL 5 MG TABCR PO (09:12)
[2019-10-02] MEDS: LOSARTAN POTASSIUM 25 MG TABLET 12.5 MG PO (09:12)
[2019-10-02] MEDS: ASPIRIN 81 MG ENTERIC TABLET PO (09:12)
[2019-10-02] MEDS: PANTOPRAZOLE 40 MG TABLET PO (09:13)
[2019-10-02] MEDS: METOPROLOL TARTRATE 25 MG TABLET PO (09:13)
[2019-10-02] MEDS: methylPREDNISolone SOD SUCC 125 MG VIAL 60 MG IV PUSH (09:14)
[2019-10-02] MEDS: CYCLOBENZAPRINE HCL 10 MG TABLET 5 MG PO (09:18)
[2019-10-02] MEDS: FLUTICASONE/UMECLIDIN/VILANTER 100-62.5-25 MCG ELLIPTA 1 PUFF INHALATION (09:19)
--- NOTE | 2019-10-02 09:25 | P.DS_ITS ---
DS: Admitting Diagnosis Admitting Diagnosis Admitting Diagnosis: Unspecified atrial fibrillation DS: Discharge Diagnosis Discharge Diagnosis (1) Atrial fibrillation with rapid ventricular response: Code(s): I48.91 - Unspecified atrial fibrillation Status: Acute Assessment and Plan: * heart rate controlled at rest in her 90s elevated slightly and 100-110 with movement * admitted with Arrhythmia, Palpitations, productive cough, dyspnea, and shortness of breath. rapid heart rate of 150. * EKG on admission indicates atrial fibrillation with rapid ventricular rate * troponin negative x3 * BMP within normal limits * echo unremarkable * discontinue Cardizem 120 mg daily * decrease metoprolol to 50 mg b.i.d. instead of 100 mg b.i.d. and started losartan at 12.5 daily * follow-up with conche operator after discharge (2) COPD (chronic obstructive pulmonary disease): Code(s): J44.9 - Chronic obstructive pulmonary disease, unspecified Status: Acute Assessment and Plan: * stable * continue budesinide and DuoNeb nebulizers * will discharge home with prednisone tapered * patient use home O2 * the theophylline level pending * cxr indicate a trace of pleural effusion (3) Type 2 diabetes mellitus: Code(s): E11.9 - Type 2 diabetes mellitus without complications Status: Acute Assessment and Plan: * remains elevated but less than 300, has probably worsened due to prednisone use * beta hydroxybutyrate level pending * patient passed A1c 9.4, patient goes to PCP office for Trulicity injections. * patient started with glipizide 5 mg b.i.d. * patient has agreed to check his blood sugar. I will start the patient on glipizide his sugar will definitely increased with the use of steroids. equipment ordered * patient states that he has never checked his glucose levels at home, stated that he doesn't even have the equipment to do so * will need extensive education regarding: diabetes, appropriate glucose levels, risks and effects of uncontrolled DM, using insulin at home, glucose monitorin g needs to be able to return demonstrate ability to dose and administer his insulin prior to discharge (4) Ascites: Code(s): R18.8 - Other ascites Status: Acute Assessment and Plan: * LFTs are wnl. * palpable enlarged and tender abdomen * ordered CT scan abdomen and pelvis - No acute abdominal abnormality * BMP within normal limits * history of ascites, previous US on 05/31/19 showin. Diffuse hepatic steatosis and fatty infiltration of the pancreas.2. Cholelithiasis without findings of acute cholecystitis.3. Likely small region of adenomyomatosis along the wall the gallbladder abutting liver. (5) Acute renal failure: Code(s): N17.9 - Acute kidney failure, unspecified Status: Acute Assessment and Plan: * improving * patient at baseline * baseline creatinine appears to be 1.25-1.30. His creatinine on 05/31/19 was 1.25 and on 07/27/2019 creatinine was 1.30. * possibly secondary to IV antibiotic versus dehydration versus noncompliance with his diabetes versus IV contrast * avoid Nephrotoxic medications * Renal dose all medications (6) Leukocytosis: Code(s): D72.829 - Elevated white blood cell count, unspecified Status: Acute Assessment and Plan: * resolved * leukocytosis may have be related or reactive to his Afib in RVR elevated HR, versus dehydration * patient with a trace of bacteria in his urine you a
--- NOTE | 2019-10-02 09:25 | PM.DS ---
DS: Admitting Diagnosis Admitting Diagnosis Admitting Diagnosis: Unspecified atrial fibrillation DS: Discharge Diagnosis Discharge Diagnosis (1) Atrial fibrillation with rapid ventricular response: Code(s): I48.91 - Unspecified atrial fibrillation Status: Acute Assessment and Plan: heart rate controlled at rest in her 90s elevated slightly and 100-110 with movement admitted with Arrhythmia, Palpitations, productive cough, dyspnea, and shortness of breath. rapid heart rate of 150. EKG on admission indicates atrial fibrillation with rapid ventricular rate troponin negative x3 BMP within normal limits echo unremarkable discontinue Cardizem 120 mg daily decrease metoprolol to 50 mg b.i.d. instead of 100 mg b.i.d. 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 discharge (2) COPD (chronic obstructive pulmonary disease): Code(s): J44.9 - Chronic obstructive pulmonary disease, unspecified Status: Acute Assessment and Plan: stable continue budesinide and DuoNeb nebulizers will discharge home with prednisone tapered patient use home O2 the theophylline level pending cxr indicate a trace of pleural effusion (3) Type 2 diabetes mellitus: Code(s): E11.9 - Type 2 diabetes mellitus without complications Status: Acute Assessment and Plan: remains elevated but less than 300, has probably worsened due to prednisone use beta hydroxybutyrate level pending patient passed A1c 9.4, patient goes to PCP office for Trulicity injections. patient started with glipizide 5 mg b.i.d. patient has agreed to check his blood sugar. I will start the patient on glipizide his sugar will definitely increased with the use of steroids. equipment ordered patient states that he has never checked his glucose levels at home, stated that he doesn't even have the equipment to do so will need extensive education regarding: diabetes, appropriate glucose levels, risks and effects of uncontrolled DM, using insulin at home, glucose monitoring needs to be able to return demonstrate ability to dose and administer his insulin prior to discharge (4) Ascites: Code(s): R18.8 - Other ascites Status: Acute Assessment and Plan: LFTs are wnl. palpable enlarged and tender abdomen ordered CT scan abdomen and pelvis - No acute abdominal abnormality BMP within normal limits history of ascites, previous US on 05/31/19 showin. Diffuse hepatic steatosis and fatty infiltration of the pancreas.2. Cholelithiasis without findings of acute cholecystitis.3. Likely small region of adenomyomatosis along the wall the gallbladder abutting liver. (5) Acute renal failure: Code(s): N17.9 - Acute kidney failure, unspecified Status: Acute Assessment and Plan: improving patient at baseline baseline creatinine appears to be 1.25-1.30. His creatinine on 05/31/19 was 1.25 and on 07/27/2019 creatinine was 1.30. possibly secondary to IV antibiotic versus dehydration versus noncompliance with his diabetes versus IV contrast avoid Nephrotoxic medications Renal dose all medications (6) Leukocytosis: Code(s): D72.829 - Elevated white blood cell count, unspecified Status: Acute Assessment and Plan: resolved leukocytosis may have be related or reactive to his Afib in RVR elevated HR, versus dehydration patient with a trace of bacteria in his urine you a culture pending. patient afebrile blood culture pending, preliminary no growth CT chest completed yesterday with contrast - No significant pleural or pericardial effusion. No thoracic lymphadenopathy. There is atherosclerosis of the aorta without evidence for aneurysm or dissection. There is fatty infiltration of the liver. There is a 3 mm right upper lobe nodule, image 63. Calcified granuloma right lower lobe. There is lingular atelectasis
[2019-10-02 11:48] LABS: Glucose Point of Care 352 (65-105)
--- NOTE | 2019-10-02 13:10 | PC.NURSE ---
Discharge to home via wheel chair with friend, denies questions upon discharge, reviewed how to do blood sugar checks and when to do blood sugar checks also reviewed home medications and changes
[2019-10-04 07:29] LABS: Glutamic acid decarboxylase AA <5 IU/mL (<5)
[2019-10-05 08:48] LABS: Theophylline 7.4 mg/L (10.0-20.0)
[2019-10-07 09:35] LABS: Glucose Point of Care 304 (65-105)
--- NOTE | 2019-10-12 14:38 | PCOTNOTE ---
Patient has been discharged from skilled OT services as he was discharged home from this facility. See evaluation for patient's level of function. MS
== END 2019-10-02 13:10 | disposition home health service (06) | DRG 309 ==
LOC: CHSED 13:23 → CHS2ND 13:29
PROVIDERS: Nurse Practitioner; Admitting Provider Emergency Medicine; Emergency Provider Emergency Medicine; PCP Nurse Practitioner Family; Visit Provider Emergency Medicine
DX: I48.91 Unspecified atrial fibrillation (principal); R18.8 Other ascites; N17.9 Acute kidney failure, unspecified; I10 Essential (primary) hypertension; I73.9 Peripheral vascular disease, unspecified; E11.9 Type 2 diabetes mellitus without complications; J44.9 Chronic obstructive pulmonary disease, unspecified; K21.9 Gastro-esophageal reflux disease without esophagitis; G47.33 Obstructive sleep apnea (adult) (pediatric); R91.1 Solitary pulmonary nodule; M19.90 Unspecified osteoarthritis, unspecified site; F17.200 Nicotine dependence, unspecified, uncomplicated
CPT/HCPCS: 36415; 71046; 71275; 74176; 80053; 80198; 81001; 82010; 82550; 82553; 83605; 83735; 83880; 84100; 84484; 85025; 85027; 85380; 86337; 86341; 87040; 87086; 87088; 93005; 94640; 96361; 96365; 96366; 96368; 96372; 96376; 97161; 97165; 99281; 99285; A9270; C8929; G0378; J1650; J1815; J2930; J3475; J7030; J7512; Q9965

== ENCOUNTER 2019-10-03 10:00 | Emergency (ER) | payer MEDICARE, MEDICAID, SELFPAY ==
[2019-10-03] VITALS (7 sets, daily range): BP systolic 115–132; BP diastolic 66–84; PULSE 103–166; RESP 24–38; TEMP 37.3; O2SAT 92–96
--- NOTE | ~2019-10-03 | CT_ITS ---
EXAMINATION: CT thoracic spine wo con EXAM DATE: 10/03/2019 11:20 INDICATION: Mid back pain. TECHNIQUE: Spiral CT thoracic spine wo con was performed without contrast. Axial, coronal and sagit raj images were reviewed. The dose-length product (DLP) for this examination was 1759.95 mGy-cm. Th e exposure was tailored according to patient size (auto mA exposure control), and iterative reconstru ction (ASIR) was used as additional dose reduction technique. Correlation is made to CT pulmonary sca n 10/01/2019, CT chest from 06/05/2018. FINDINGS: Compared to CT pulmonary scan several days ago, interval development of moderate amount of patchy ill -defined right-sided airspace disease, likely acute infectious process. Please consider this as poten tial etiology for patient's acute symptoms of back pain. Differential diagnosis includes bacterial an d viral infection, but unilaterality would be atypical appearance for COVID-19. There are 4 discrete thoracic compression fractures as follows: T3 has mild to moderate compression of the superior endplate, appears chronic. T4 has moderate central and anterior compression with sclerosis, appears subacute. T8 has mild to moderate central compression at the superior endplate, appears chronic. T10 is mild central and anterior compression at the inferior endplate, appears chronic. Cannot exclude acute component to one of these, but there is no paraspinal hematoma, and no acute cor tical break identified. Correlating to a prior CT chest dated 06/05/2018, there is been mild progression in the T3 fracture, pr ogression in the T4 fracture. The T8 fracture is new compared to that time, and the T10 fracture is u nchanged. There are bilateral old rib fractures. No endplate erosive change. The vertebral bodies are aligned in the AP dimension. Mild diffuse thoracic facet arthropathy. Number than mild central canal or neural foraminal stenosis suspected at any given level. IMPRESSION: 1. Development of moderate amount of ill-defined right upper, middle and lower lobe acute infectious process, clinical correlation. 2. Compression fractures without acute cortical breaks. Can't completely exclude acute component to one of these. Reviewed, dictated and finalized at location A. IMPRESSION: 1. Development of moderate amount of ill-defined right upper, middle and lower lobe acute infectious process, clinical correlation. 2. Compression fractures without acute cortical breaks. Can't completely exclu de acute component to one of these.
--- NOTE | 2019-10-03 10:05 | ED.SOB ---
HPI - SOB/Dyspnea General Chief Complaint: Shortness of Breath/Dyspnea Stated Complaint: ambulance Time Seen by Provider: 10/03/19 10:00 Source: patient, EMS and RN notes reviewed Mode of arrival: EMS Limitations: no limitations History of Present Illness HPI Narrative: Patient has a long recent history of extensive workup. He has been seen by pulmonology who had ordered a CT scan put him on some steroids aminophylline and Levaquin. Patient then arrived here in the emergency room 3 days ago with dizziness from the office. In the office he was found to have a heart rate greater than 150 with atrial fibrillation RVR. He was treated in the emergency room put on a Cardizem drip and admitted to the hospital. In the hospital he was weaned off of his Cardizem and put on oral Cardizem. He was also on a beta-emma. He had a CT PE protocol for an elevated D-dimer that was negative. He also had a CT chest at his pulmonary consult which did not show any evidence of pneumonia. On last admission he was also having acute renal failure which is treated with IV fluids. Today he continues to have severe back pain due to his compression fractures. He also had a CT abdomen which only showed some cholelithiasis and no acute abnormalities. Patient states that today he had 1st a normal bowel movement and then his next 1 was just blood in the toilet. He does have a history of hemorrhoids but he does not recall any problems with those lately. MD elicited complaint: shortness of breath Pertinent past history: COPD Onset (ago): hour(s) (12) Context: recent illness Timing: intermittent and progressively worsening Severity: moderate Exacerbating factors: lying flat and exertion Relieving factors: nothing Known history of: COPD Associated symptoms: denies other symptoms Treatment prior to arrival: none Related Data Home Medications Medication Instructions Recorded Confirmed albuterol sulfate 90 mcg/actuation 1 puff INHALATION Q4H PRN 02/09/19 10/03/19 aerosol inhaler aspirin 81 mg tablet,delayed 81 mg PO DAILY 02/09/19 10/03/19 release fluticasone fur. 100 mcg-umeclid 1 inhalation INHALATION DAILY 02/09/19 10/03/19 62.5 mcg-vilant 25 mcg inhalat.powder theophylline 400 mg 400 mg PO DAILY 02/09/19 10/03/19 tablet,extended release 24 hr levofloxacin [Levaquin] 750 mg PO DAILY 10/03/19 10/03/19 Allergies Allergy/AdvReac Type Severity Reaction Status Date / Time Penicillins Allergy Intermediate Unknown Verified 09/29/19 10:32 propoxyphene [Darvocet-N 100] Allergy Intermediate Unknown Verified 09/29/19 10:32 Review of Systems Constitutional: Constitutional: Reports no additional constitutional complaints Eyes: Eyes: Reports no additional eye complaints ENT: Reports system reviewed and no additional complaints, except as documented Cardiovascular: Cardiovascular: Reports as per HPI Respiratory: Respiratory: Reports as per HPI Gastrointestinal: Comments: Patient states he had 1 episode of blood in the toilet with bowel movement. he had a regular bowel movement prior to that. Genitourinary: Genitourinary: Reports no additional male genitourinary complaints Musculoskeletal: Musculoskeletal: Reports back pain ( Severe but has a history of thoracic compression fractures.) Integumentary/Breasts: Skin/Breast: Reports system reviewed and no additional complaints, except as docu Neurologic: Reports system reviewed and no additional complaints, except as documented Psychiatric: Psychiatric: Reports no additional psychiatric complaints Endocrine: Endocrine: Reports no additional endocrine complaints Allergic/Immunologic: Allergic/Immunologic: Reports no additional allergic/immunologic complaints PMFSH Past Medical History Medical History Atrial fibrillation BMI 28.0-28.9,adult Callus of heel COPD (chronic obstructive pulmonary disease) GERD (gastroesophageal reflux disease) H
--- NOTE | 2019-10-03 10:06 | ECG_ITS ---
Measurements Intervals [place] Rate: 151 P: WI: 0 QRS: 38 QRSD: 90 T: 64 QT: 260 QTc: 412 Interpretive Statements ATRIAL FIBRILLATION WITH RAPID VENTRICULAR RESPONSE NONSPECIFIC ST & T-WAVE ABNORMALITY- INF/HIGH LAT LEADS BASELINE ARTIFACT- II, III, AVF ABNORMAL ECG Electronically Signed On 10-04-2019 7:03:21 CDT by Adam Sims D.O.
[2019-10-03] MEDS: dilTIAZem HCl INJ 25 MG/5 ML VIAL 30 MG IV PUSH (10:19)
[2019-10-03 10:44] LABS: Basophils Absolute Auto 0.05 K/mm3 (0.00-0.10); Basophils Percent Auto 0.3 % (0.0-1.0); Hematocrit 40.5 % (37.0-46.0); Hemoglobin 14.1 g/dL (12.4-15.3); Immature Granulocyte Absolute 0.23 K/mm3 (0.00-0.00); Immature Granulocyte Percent A 1.5 % (0.0-0.0); Lymphocytes Absolute Auto 1.09 K/mm3 (1.10-4.50); Lymphocytes Percent Auto 7.2 % (18.0-42.0); Mean Corpuscular HGB Conc 34.8 g/dL (32.0-36.0); Mean Corpuscular Hemoglobin 29.8 pg (27.0-31.0); Mean Corpuscular Volume 85.6 fL (78.0-102.0); Mean Platelet Volume 10.4 fl (8.7-11.0); Monocytes Percent Auto 6.6 % (2.0-11.0); Neutrophils Absolute Auto 12.7 K/mm3 (1.7-7.2); Neutrophils Percent Auto 84.4 % (50.0-70.0); Nucleated Red Blood Cells Absolute Auto 0.02 K/mm3 (0.00-0.00); Nucleated Red Blood Cells Perc 0.1 % (0-0.0); Platelet Count Result 151 K/mm3 (150-420); Red Blood Count 4.73 M/mm3 (4.70-6.10); Red Cell Distribution Width 14.3 % (11.6-14.4); White Blood Count 15.1 K/mm3 (4.8-10.8)
[2019-10-03 11:00] LABS: Alanine Aminotransferase 28 U/L (16-63); Albumin Level 2.9 g/dL (3.4-5.0); Alkaline Phosphatase 68 U/L (46-116); Aspartate Amino Transferase 15 U/L (15-37); Bilirubin,Total 0.6 mg/dL (0.00-1.00); Blood Urea Nitrogen 28 mg/dL (7-18); Calcium 8.8 mg/dL (8.5-10.1); Carbon Dioxide 24 mmol/L (21-32); Chloride 106 mmol/L (98-108); Estimated CRCL calculation 49 ml/min; Estimated Glomerular Filt Rate 43; Glucose 284 mg/dL (70-99); Magnesium 1.6 mg/dL (1.8-2.4); Osmolality Calculated 303 mOsm/kg (285-295); Sodium 139 mmol/L (136-145)
[2019-10-03 11:02] LABS: BNP 119 pg/mL (0-100)
[2019-10-03] MEDS: KETOROLAC 30 MG/ML VIAL (*BKC) IV PUSH (11:04)
--- NOTE | 2019-10-03 11:04 | PC.NURSE ---
Report given to GWEN Nix
--- NOTE | 2019-10-03 12:05 | PC.NURSE ---
Pt requesting [facility] for higher level of care. Pt accepted by Armando hospitalist at [facility], awaiting room assignment.
== END 2019-10-03 13:45 | disposition short-term general hospital (02) ==
PROVIDERS: Emergency Provider Emergency Medicine; PCP Nurse Practitioner Family
DX: I48.20 Chronic atrial fibrillation, unspecified (principal); J41.0 Simple chronic bronchitis; S22.060G Wedge compression fracture of T7-T8 vertebra, subsequent encounter for fracture with delayed healing; N17.9 Acute kidney failure, unspecified; K21.9 Gastro-esophageal reflux disease without esophagitis; I10 Essential (primary) hypertension; E11.9 Type 2 diabetes mellitus without complications; F17.200 Nicotine dependence, unspecified, uncomplicated
CPT/HCPCS: 36415; 72128; 80053; 83735; 83880; 85025; 93005; 96365; 96366; 96375; 99285; J1885